=== PATIENT | male | born 1980 | race Caucasian/White ===

== ENCOUNTER → 2016-12-11 | Outpatient (CLI) | payer OTHER ==
--- NOTE | ~2016-12-11 | CR150 ---
[facility]. [facility] A Service of [facility] RADIOLOGY TEXT RESULTS PATIENT: JESSI GOLDBERG LOCATION: [facility] : [birth year] UNIT #: [id number] AGE: [address]: Gianluca James MD SEX: M ORDER DR: [id number] [place] [id number] O MR#: [id number] Acc #: [id number] NAME: JESSI GOLDBERG : 1980 SEX: M STUDY DATE/TIME: 12/11/2016 14:23 UNIT: SRAD ROOM: STUDY DESCRIPTION: CR Hip Min 2 Views Lt Attending Physician: Gianluca James M.D. Referring Physician: Gianluca James M.D. Ordering Physician: Gianluca James M.D. Primary Care Physician: Yaa Croft M.D. MEDICAL IMAGING REPORT This report is preliminary unless electronic signature is present. EXAM Left hip, 12/11/2016 HISTORY 36-year-old male with left hip pain for [address] abdomen and pelvis, 11/22/2003 FINDINGS Two views of the left hip demonstrate no acute fracture or dislocation. Joint space within normal limits. Bony pelvis intact. IMPRESSION Unremarkable left hip. Dictated by... David May M.D. THIS IS AN ELECTRONICALLY VERIFIED REPORT David May M.D. at 12/12/2016 3:24 PM DILLON/vanda TD: 12/12/2016 08:26 JOB #: [id number] MEDICAL IMAGING REPORT Page 1 of 1
--- NOTE | ~2016-12-11 | CR151 ---
[facility] [place]. [facility] A Service of [facility] RADIOLOGY TEXT RESULTS PATIENT: JESSI GOLDBERG LOCATION: [facility] : [birth year] UNIT #: [id number] AGE: [address]: Gianluca James MD SEX: M ORDER DR: [id number] [place] [id number] O MR#: [id number] Acc #: [id number] NAME: JESSI GOLDBERG : 1980 SEX: M STUDY DATE/TIME: 12/11/2016 14:23 UNIT: SRAD ROOM: STUDY DESCRIPTION: CR Hip Min 2 Views Rt Attending Physician: Gianluca James M.D. Referring Physician: Gianluca James M.D. Ordering Physician: Gianluca James M.D. Primary Care Physician: Yaa Croft M.D. MEDICAL IMAGING REPORT This report is preliminary unless electronic signature is present. EXAM Right hip, 12/11/2016 HISTORY 36-year-old male with right hip pain for [address] abdomen and pelvis, 11/22/2003 FINDINGS Two views of the right hip demonstrate no acute fracture or dislocation. There are mild degenerative changes of the right hip with subchondral sclerosis and cystic change in the right superior acetabulum. Bony pelvis intact. Sacrum and SI joints intact. Soft tissues are unremarkable. IMPRESSION 1. No acute fracture or dislocation. 2. Mild arthrosis of the right hip, detailed above. Dictated by... David May M.D. THIS IS AN ELECTRONICALLY VERIFIED REPORT David May M.D. at 12/12/2016 3:24 PM Dale TD: 12/12/2016 08:25 JOB #: [id number] MEDICAL IMAGING REPORT Page 1 of 1
== END | disposition home or self-care (01) ==
LOC: SRAD 14:16
DX: M25.551 Pain in right hip (principal); M16.11 Unilateral primary osteoarthritis, right hip
CPT/HCPCS: 73502